=== PATIENT | female | born 1930 | race Caucasian/White ===

== ENCOUNTER → 2017-04-19 | Outpatient (CLI) | payer BC ==
[~2017-04-19] MED LIST: AMLO5TAB2 PO; ATEN25TA PO; ATEN50TA PO; CALC-225 PO; CATHETER FLUSH 10 ML SYR IV PRN; CLON0.2T PO; DPAS20025 PO; HYDR-3923 PO; HYDR-3924 PO; IBAN150T8 PO; LISI-552 PO; NFVALS90T PO; REGADENOSON 0.4 MG/5 ML SYR (LEXISCAN) IV ONE; SPIR25TA3 PO; VIT1CAPS40 PO
[2017-04-19 11:49] LABS: BASOPHILS # (AUTO) 0.1 10^3/uL (0.0-0.1); BASOPHILS % (AUTO) 1 % (0-10); EOSINOPHILS # (AUTO) 0.1 10^3/uL (0.0-0.3); EOSINOPHILS % (AUTO) 2 % (0-10); HEMATOCRIT 35 % (35-52); HEMOGLOBIN 12.1 G/DL (11.5-16.0); LYMPHOCYTES # (AUTO) 1.9 X 10^3 (1.0-4.0); LYMPHOCYTES % (AUTO) 41 % (12-44); MEAN CORPUSCULAR HEMOGLOBIN 29 PG (25-34); MEAN CORPUSCULAR HGB CONC 34 G/DL (32-36); MEAN CORPUSCULAR VOLUME 85 FL (80-99); MEAN PLATELET VOLUME 10.5 FL (7.4-10.4); MONOCYTES # (AUTO) 0.5 X 10^3 (0.0-1.0); MONOCYTES % (AUTO) 10 % (0-12); NEUTROPHILS # (AUTO) 2.1 X 10^3 (1.8-7.8); NEUTROPHILS % (AUTO) 46 % (42-75); PLATELET COUNT 327 10^3/uL (130-400); RED BLOOD COUNT 4.16 10^6/uL (4.35-5.85); RED CELL DISTRIBUTION WIDTH 15.1 % (10.0-14.5); WHITE BLOOD COUNT 4.6 10^3/uL (4.3-11.0)
[2017-04-19 12:11] LABS: CHOLESTEROL 237 MG/DL (< 200); HDL CHOLESTEROL 84 MG/DL (40-60); TRIGLYCERIDES 68 MG/DL (<150); VLDL CHOLESTEROL 14 MG/DL (5-40)
[2017-04-19 12:11] LABS: ALBUMIN 4.2 GM/DL (3.2-4.5); BILIRUBIN,TOTAL 0.6 MG/DL (0.1-1.0); CALCIUM 9.7 MG/DL (8.5-10.1); CREATININE SERUM 0.9 MG/DL (0.60-1.30); MAGNESIUM 1.9 MG/DL (1.8-2.4); POTASSIUM 3.8 MMOL/L (3.6-5.0); TOTAL PROTEIN 8.1 GM/DL (6.4-8.2)
[2017-04-19 12:36] VITALS: BP 153/69
--- NOTE | 2017-04-20 03:19 | STRESS TEST ---
DATE OF SERVICE: 04/19/2017 RESTING AND POST REGADENOSON TECHNETIUM-99M TETROFOSMIN SPECT CT IMAGING ORDERING PHYSICIAN: Dr. Cruz. PRIMARY PHYSICIAN: Dr. Berenice Barrett. CLINICAL DIAGNOSES: 1. Nonsustained ventricular tachycardia. 2. Hypertension. 3. H/o dual chamber pacemaker Baseline images were carried out after injection of 10.64 mCi of technetium-99m tetrofosmin. This was followed by 0.4 mg regadenoson and 31.2 mCi technetium-99m tetrofosmin for stress imaging. The electrocardiogram showed sinus rhythm with a paced ventricular rhythm. The electrocardiogram did not change significantly with the regadenoson infusion. Review of images at rest and following stress does not indicate any significant perfusion defects consistent with any significant myocardial ischemia or infarction. Gated images show normal global left ventricular systolic function with normal regional wall motion. Left ventricular ejection fraction is calculated to be 76%. Left ventricular end diastolic volume is 39 mL. TID is absent (0.97). CONCLUSIONS: 1. No evidence of any significant myocardial ischemia or infarction on this study. 2. Normal regional wall motion. 3. Normal global left ventricular systolic function with a calculated ejection fraction of 76%. 4. Normal left ventricular cavity size. Job ID: [id number] DocumentID: [id number] Dictated Date: 04/19/2017 17:19:57 Public Speaking Professor Date: 04/19/2017 19:48:37 Dictated By: ARPIT CRUZ MD, MA, FACP, FACC, MTDD
== END ==
LOC: CARD 10:55
PROVIDERS: ATTEND Internal Medicine Cardiovascular Disease
DX: I47.2 Ventricular tachycardia (principal); I45.89 Other specified conduction disorders; Z95.0 Presence of cardiac pacemaker; E87.1 Hypo-osmolality and hyponatremia; I10 Essential (primary) hypertension
CPT/HCPCS: 36415; 78452; 80053; 80061; 83735; 83880; 84443; 85025; 85652; 93017; 93306

== ENCOUNTER → 2017-05-02 | Outpatient (CLI) | payer BC ==
[~2017-05-02] MED LIST changes: -CATHETER FLUSH 10 ML SYR IV PRN; -REGADENOSON 0.4 MG/5 ML SYR (LEXISCAN) IV ONE
--- NOTE | 2017-05-02 14:43 | Diagnostic Imaging Report ---
INDICATION: Pacemaker placement. Time of exam: 2:25 PM Correlation is made with prior study from 06/23/2015. Dual-lead left-subclavian cardiac pacemaker remains in place. Leads appear to be in the region of the right atrium and right ventricle. Positioning appears stable. The lungs are clear. No infiltrate is seen. There is no effusion. No pneumothorax is detected. IMPRESSION: Stable chest when compared with exam from 06/23/2015. Dictated by: Dictated on workstation # [id number]
== END ==
LOC: RAD 13:52
PROVIDERS: ATTEND Internal Medicine Cardiovascular Disease
DX: I10 Essential (primary) hypertension (principal); Z95.0 Presence of cardiac pacemaker
CPT/HCPCS: 71046